=== PATIENT | female | born 1960 | race Caucasian/White ===

== ENCOUNTER → 2018-06-17 | Outpatient (REF) | payer OTHER | LOC: M SFHCCLAY 12:26 | DX: Z12.4 Encounter for screening for malignant neoplasm of cervix (principal) ==

== ENCOUNTER 2018-09-07 09:05 | Day surgery (SDC) | payer OTHER ==
[~2018-09-07] VITALS: Ht 157.5 cm; Wt 58.5 kg
[~2018-09-07 09:05] MED LIST: ASPI81TA85 PO; NS 1,000 ML IV SCH
[2018-09-07] MEDS ORDERED: PROPOFOL 500 MG/50 ML VIAL As Ordered ONE (10:06)
[2018-09-07] MEDS ORDERED: fentaNYL 100 MCG/2 ML INJECTION (J3010) As Ordered ONE (10:06)
[2018-09-07] MEDS ORDERED: LIDOCAINE 2% INJ 100 MG/5 ML SDV (FOR ANES.) As Ordered ONE (11:20)
--- NOTE | 2018-09-07 11:29 | ROOR ---
Patient Name: Elysia Benson Procedure Date: 09/07/2018 10:51 AM Date of : 1960 Age: 58 Room: [facility] Gender: Female Note Status: Finalized Procedure: Upper GI endoscopy Indications: Heartburn, Suspected gastro-esophageal reflux disease Providers: Stanley Jurado MD Referring MD: Rowdy Kendrick MD Requesting Provider: Medicines: Monitored Anesthesia Care Complications: No immediate complications. Procedure: Pre-Anesthesia Assessment: - Prior to the procedure, a History and Physical was performed, and patient medications and allergies were reviewed. The patient is competent. The risks and benefits of the procedure and the sedation options and risks were discussed with the patient. All questions were answered and informed consent was obtained. Patient identification and proposed procedure were verified by the physician, the nurse and the anesthesiologist in the endoscopy suite. Mental Status Examination: alert and oriented. Airway Examination: normal oropharyngeal airway and neck mobility. Respiratory Examination: clear to auscultation. CV Examination: normal. Prophylactic Antibiotics: The patient does not require prophylactic antibiotics. Prior Anticoagulants: The patient has taken aspirin, last dose was day of procedure. ASA Grade Assessment: II - A patient with mild systemic disease. After reviewing the risks and benefits, the patient was deemed in satisfactory condition to undergo the procedure. The anesthesia plan was to use monitored anesthesia care (MAC). Immediately prior to administration of medications, the patient was re-assessed for adequacy to receive sedatives. The heart rate, respiratory rate, oxygen saturations, blood pressure, adequacy of pulmonary ventilation, and response to care were monitored throughout the procedure. The physical status of the patient was re-assessed after the procedure. The Endoscope was introduced through the mouth, and advanced to the second part of duodenum. The upper GI endoscopy was accomplished without difficulty. The patient tolerated the procedure well. Findings: The examined esophagus was normal. The Z-line was regular and was found 38 cm from the incisors. The entire examined stomach was normal. The duodenal bulb, first portion of the duodenum and second portion of the duodenum were normal. Impression: - Normal esophagus. - Z-line regular, 38 cm from the incisors. - Normal stomach. - Normal duodenal bulb, first portion of the duodenum and second portion of the duodenum. - No specimens collected. Recommendation: - Discharge patient to home (ambulatory). Stanley Jurado MD Stanley Jurado MD 09/07/2018 11:29:22 AM This report has been signed electronically. Number of Addenda: 0 Note Initiated On: 09/07/2018 10:51 AM Estimated Blood Loss: Estimated blood loss: none.
--- NOTE | 2018-09-07 11:32 | ROOR ---
Patient Name: Elysia Benson Procedure Date: 09/07/2018 10:52 AM Date of : 1960 Age: 58 Room: [facility] Gender: Female Note Status: Finalized Procedure: Colonoscopy Indications: Pelvic pain Providers: Stanley Jurado MD Referring MD: Rowdy Kendrick MD Requesting Provider: Medicines: Monitored Anesthesia Care Complications: No immediate complications. Procedure: Pre-Anesthesia Assessment: - Prior to the procedure, a History and Physical was performed, and patient medications and allergies were reviewed. The patient is competent. The risks and benefits of the procedure and the sedation options and risks were discussed with the patient. All questions were answered and informed consent was obtained. Patient identification and proposed procedure were verified by the physician, the nurse and the anesthesiologist in the endoscopy suite. Mental Status Examination: alert and oriented. Airway Examination: normal oropharyngeal airway and neck mobility. Respiratory Examination: clear to auscultation. CV Examination: normal. ASA Grade Assessment: II - A patient with mild systemic disease. After reviewing the risks and benefits, the patient was deemed in satisfactory condition to undergo the procedure. The anesthesia plan was to use monitored anesthesia care (MAC). Immediately prior to administration of medications, the patient was re-assessed for adequacy to receive sedatives. The heart rate, respiratory rate, oxygen saturations, blood pressure, adequacy of pulmonary ventilation, and response to care were monitored throughout the procedure. The physical status of the patient was re-assessed after the procedure. The Colonoscope was introduced through the anus and advanced to the terminal ileum, with identification of the appendiceal orifice and IC valve. The colonoscopy was performed without difficulty. The patient tolerated the procedure well. The quality of the bowel preparation was good. Findings: The perianal and digital rectal examinations were normal. A few medium-mouthed diverticula were found in the sigmoid colon. Two sessile polyps were found in the rectum. The polyps were diminutive in size. These polyps were removed with a jumbo cold forceps. Resection and retrieval were complete. Estimated blood loss was minimal. No additional abnormalities were found on retroflexion. Impression: - Diverticulosis in the sigmoid colon. - Two diminutive polyps in the rectum, removed with a jumbo cold forceps. Resected and retrieved. Recommendation: - Discharge patient to home (ambulatory). - Telephone my office for pathology results in 1 week. Stanley Jurado MD Stanley Jurado MD 09/07/2018 11:32:32 AM This report has been signed electronically. Number of Addenda: 0 Note Initiated On: 09/07/2018 10:52 AM Estimated Blood Loss: Estimated blood loss: none.
[2018-09-07 11:50] VITALS: BP 155/72
== END 2018-09-07 12:08 | disposition home or self-care (01) ==
LOC: M OPP 09:05
PROVIDERS: ATTEND Surgery
DX: K62.1 Rectal polyp (principal); R10.2 Pelvic and perineal pain; K57.30 Diverticulosis of large intestine without perforation or abscess without bleeding; R12 Heartburn; R10.30 Lower abdominal pain, unspecified; K21.9 Gastro-esophageal reflux disease without esophagitis; Z79.82 Long term (current) use of aspirin
CPT/HCPCS: 43235; 45380; 88305; J3010

== ENCOUNTER → 2020-01-29 | Outpatient (CLI) | payer OTHER ==
[~2020-01-29] MED LIST changes: -ASPI81TA85 PO; +ASPI81TA86 PO; -NS 1,000 ML IV SCH
--- NOTE | 2020-01-29 15:15 | REP ---
REASON: Acute knee pain. There are no priors for comparison. There is slight tricompartmental marginal osteophytosis with medial compartment narrowing. There is no fracture, dislocation or subluxation. IMPRESSION: Chronic changes. Electronically Signed by Lalo Bowen DO 01/29/2020 04:39 P
== END ==
LOC: M CLY 12:31
PROVIDERS: ATTEND Physician Assistant
DX: M25.762 Osteophyte, left knee (principal)

== ENCOUNTER → 2020-05-23 | Outpatient (CLI) | payer OTHER | LOC: M LABSMTC 10:31 | PROVIDERS: ATTEND Orthopaedic Surgery | DX: Z11.59 Encounter for screening for other viral diseases (principal) ==

== ENCOUNTER → 2020-06-12 | Outpatient (REF) | payer OTHER ==
[2020-06-12 12:49] LABS: ALBUMIN 3.5 GM/DL (3.2-5.2); ALT/SGPT 150 U/L (12-78); BILIRUBIN,DIRECT < 0.1 MG/DL (0.0-0.2); BILIRUBIN,TOTAL 0.4 MG/DL (0.2-1.0); FERRITIN 107 NG/ML (8-252); HEPATITIS B SURFACE ANTIBODY NEGATIVE (POSITIVE); IRON (FE) 51 UG/DL (50-170); TOTAL PROTEIN 6.9 GM/DL (6.4-8.2)
[2020-06-12 12:58] LABS: HEPATITIS B SURFACE ANTIGEN NEGATIVE (NEGATIVE)
[2020-06-12 13:43] LABS: HEPATITIS C VIRUS ABY INDEX 0.1 INDEX (<0.8)
[2020-06-13 17:07] LABS: ANTINUCLEAR ANTIBODIES DIRECT Negative (Negative); HEPATITIS A IgG TOTAL Negative (Negative); LIVER-KIDNEY MICROSOMAL ABY <20.1 Units (0.0-20.0)
== END ==
LOC: M SFHCCLAY 11:28
PROVIDERS: ATTEND Family Medicine
DX: I82.412 Acute embolism and thrombosis of left femoral vein (principal); K75.9 Inflammatory liver disease, unspecified; Z79.82 Long term (current) use of aspirin

== ENCOUNTER → 2020-06-12 | Outpatient (REF) | payer OTHER | LOC: M SFHCCLAY 12:29 | PROVIDERS: ATTEND Family Medicine | DX: I82.412 Acute embolism and thrombosis of left femoral vein (principal) ==